=== PATIENT | female | born 1950 | race Caucasian/White ===

== ENCOUNTER 2020-07-16 10:19 | Inpatient (IN) ==
[2020-07-08 17:35] LABS: Basophils # (Auto) 0.06 K/mcL (0.00-0.20); Basophils % (Auto) 0.9 % (0.0-2.0); Eosinophils # (Auto) 0.12 K/mcL (0.00-0.70); Eosinophils % (Auto) 1.7 % (0.0-7.0); Hematocrit 39.5 % (36.0-48.0); Hemoglobin 12.6 g/dL (12.0-15.0); Lymphocytes # (Auto) 1.67 K/mcL (1.50-4.80); Lymphocytes % (Auto) 24.1 % (15.0-49.0); Mean Cell Volume 88.6 fL (80.0-100.0); Mean Corpuscular HGB Conc 31.9 g/dL (31.0-36.0); Mean Platelet Volume 11.5 fL (7.4-10.4); Monocytes # (Auto) 0.53 K/mcL (0.10-0.90); Monocytes % (Auto) 7.6 % (1.0-12.0); Neutrophils % (Auto) 65.7 % (38.0-78.0); Platelet Count 313 K/mcL (140-440); RBC 4.46 M/mcL (4.00-5.20); Red Cell Distribution Width 14.1 % (11.5-14.5); WBC 6.9 K/mcL (4.5-11.0)
[2020-07-08 17:38] LABS: Appearance,Urine CLEAR (Clear); Bacteria,Urine FEW /hpf (0); Bilirubin,Urine Negative (Negative); Color,Urine YELLOW; Culture Indicated,Urine Yes; Glucose,Urine (UA) Negative (Negative); Ketones,Urine Negative (Negative); Leukocyte Esterase,Urine Negative /ug (Negative); Mucus,Urine FEW /hpf; Nitrate,Urine POS (Negative); Protein,Urine Negative (Negative); Specific Gravity,Urine 1.019 (1.000-1.035); Urine Blood Negative (Negative); Urine RBC 2 /hpf (0-1); Urine Squamous Epithelial Cell 2 /hpf (0-4); Urine Transitional Epi Cells < 1 /hpf (0-2); Urine WBC 2 /hpf (0-4); Urobilinogen,Urine Negative
[2020-07-08 18:01] LABS: Estimated Average Glucose(eAG) 117 mg/dL; Hemoglobin A1C 5.7 % Hgb (4.0-6.0)
[2020-07-08 18:27] LABS: ALT/SGPT 16 U/L (<40); AST/SGOT 21 U/L (<32); Albumin 4.2 gm/dL (3.2-5.2); Albumin/Globulin Ratio 1.5 (1.0-2.3); Alkaline Phosphatase 98 U/L (39-117); Bilirubin,Total 0.4 mg/dL (0.1-1.0); Blood Urea Nitrogen 22 mg/dL (8-23); Calcium 9.9 mg/dL (8.6-10.4); Carbon Dioxide 30 mmol/L (22-30); Chloride 97 mmol/L (96-108); Globulin 2.8 gm/dL (2.2-3.7); Glomerular Filtration Rate 88; Glucose 115 mg/dL (70-105)
[~2020-07-16 10:19] MED LIST: CELECOXIB 200 MG CAPSULE PO SCH; IPRATROPIUM/ALBUTEROL 3 ML AMPUL.NEB NEB PRN; PREGABALIN 75 MG CAPSULE PO SCH; SCOPOLAMINE 1 PATCH PATCH TOPICAL PRN; ceFAZolin 2 GM in DEXTROSE 5% IN WATER 50 ML IV SCH; oxyCODONE 10 MG TAB.ER.12H PO SCH
[2020-07-16] MEDS ORDERED: KETAMINE 100 MG/ML ML ONE (11:45)
[2020-07-16] MEDS ORDERED: MIDAZOLAM 2 MG/2 ML VIAL ONE (11:45)
[2020-07-16] MEDS ORDERED: TRANEXAMIC ACID 1,000 MG/10 ML VIAL IV ONE (11:45)
[2020-07-16] MEDS ORDERED: ONDANSETRON 4 MG/2 ML VIAL ONE (11:45)
[2020-07-16] MEDS ORDERED: PROPOFOL 200 MG/20 ML VIAL IV ONE (11:45)
[2020-07-16] MEDS ORDERED: DEXAMETHASONE 10 MG/ML VIAL ONE (11:45)
[2020-07-16] MEDS ORDERED: GLYCOPYRROLATE 0.2 MG/ML VIAL IV ONE (11:45)
[2020-07-16] MEDS ORDERED: LIDOCAINE HCL/PF 100 MG/5 ML SYRINGE IV ONE (11:45)
[2020-07-16] MEDS ORDERED: fentaNYL 100 MCG/2 ML VIAL IV ONE (11:45)
[2020-07-16] MEDS ORDERED: PHENYLEPHRINE 10 MG/ML VIAL ONE (11:45)
[2020-07-16] MEDS ORDERED: ePHEDrine 50 MG/ML AMPUL IV ONE (11:45)
[2020-07-16 12:06] LABS: Appearance,Urine CLEAR (Clear); Bilirubin,Urine Negative (Negative); Color,Urine YELLOW; Culture Indicated,Urine No; Glucose,Urine (UA) Negative (Negative); Ketones,Urine Negative (Negative); Leukocyte Esterase,Urine Negative /ug (Negative); Nitrate,Urine Negative (Negative); Protein,Urine Negative (Negative); Specific Gravity,Urine 1.015 (1.000-1.035); Urine Blood Negative (Negative); Urobilinogen,Urine Negative
[2020-07-16] MEDS ORDERED: METHOCARBAMOL 1,000 MG/10 ML VIAL IV PRN (12:36)
[2020-07-16] MEDS ORDERED: ACETAMINOPHEN 1,000 MG/100 ML BAG IV ONE (12:36)
[2020-07-16] MEDS ORDERED: LACTATED RINGERS 250 ML IV PRN (12:36)
[2020-07-16] MEDS ORDERED: FLUMAZENIL 0.1 MG/ML ML IV PRN (12:36)
[2020-07-16] MEDS ORDERED: IPRATROPIUM/ALBUTEROL 3 ML AMPUL.NEB NEB PRN (12:36)
[2020-07-16] MEDS ORDERED: NALOXONE HCL 0.4 MG/ML VIAL IV PRN (12:36)
[2020-07-16] MEDS ORDERED: LACTATED RINGERS 1,000 ML IV SCH (12:45)
--- NOTE | 2020-07-16 14:05 | Brief Operative Note ---
Brief Operative Note Date of procedure: 07/16/20 Pre-op diagnosis: Left hip severe OA Post-op diagnosis: same Procedure: Left anterior total hip arthroplasty, (partial) cable fixation of intraoperative femur fracture Grafts/Implants: Yes (Depuy pinnacle 54 cup, neutral 32 liner, 3 cables) Anesthesia: spinal and GLMA Findings: large lateral femoral butterfly facture Complications: other (intra-operative femur fracture) Complications Description: post implantation xray showed a large proximal lat eral butterfly fragment fracture of the femoral shaft Surgeon: Ari Henriquez Tong Hooker: Shaun Silva Estimated blood loss (cc): 150 Specimens Removed/Pathology: none sent Condition: stable Disposition: PACU
[2020-07-16] MEDS ORDERED: TRANEXAMIC ACID 1,000 MG/10 ML VIAL IV SCH (14:07)
[2020-07-16] MEDS ORDERED: ONDANSETRON 4 MG/2 ML VIAL IV PRN (14:07)
[2020-07-16] MEDS: fentaNYL 100 MCG/2 ML VIAL IV PRN ×8 (14:25→15:30)
[2020-07-16] MEDS ORDERED: HYDROmorphone 0.5 MG/0.5 ML SYRINGE ONE (14:52)
[2020-07-16] MEDS ORDERED: MEPERIDINE 50 MG/ML INJECTION IV ONE (15:44)
[2020-07-16] MEDS ORDERED: MEPERIDINE 50 MG/ML INJECTION ONE ×2 (15:44→15:50)
[2020-07-16] MEDS: LACTATED RINGERS 1,000 ML IV SCH (15:50)
[2020-07-16] MEDS: HYDROmorphone 1 MG/ML SYRINGE IV PRN ×4 (16:23→21:03)
[2020-07-16] MEDS ORDERED: 0.9 % SODIUM CHLORIDE 500 ML IV ONE (18:24)
[2020-07-16 19:17] LABS: Hematocrit 33.8 % (36.0-48.0); Hemoglobin 10.9 g/dL (12.0-15.0)
[2020-07-16] MEDS: ceFAZolin 1 GM VIAL IV SCH (19:30)
[2020-07-16] MEDS: 0.9 % SODIUM CHLORIDE 10 ML SYRINGE IV SCH (21:07)
[2020-07-17] MEDS: HYDROmorphone 1 MG/ML SYRINGE IV PRN ×6 (00:04→12:37)
[2020-07-17] MEDS: LACTATED RINGERS 1,000 ML IV SCH ×3 (00:05→14:02)
[2020-07-17] MEDS: ceFAZolin 1 GM VIAL IV SCH ×3 (03:45→23:28)
[2020-07-17] MEDS: 0.9 % SODIUM CHLORIDE 10 ML SYRINGE IV SCH ×3 (06:07→23:28)
[2020-07-17] MEDS ORDERED: ceFAZolin 2 GM in DEXTROSE 5% IN WATER 50 ML IV SCH (07:30)
[2020-07-17] MEDS ORDERED: LIDOCAINE HCL/PF 100 MG/5 ML SYRINGE IV ONE (07:40)
[2020-07-17] MEDS ORDERED: MIDAZOLAM 5 MG/5 ML VIAL ONE (07:40)
[2020-07-17] MEDS ORDERED: SUCCINYLCHOLINE 20 MG/ML ML IV ONE (07:40)
[2020-07-17] MEDS ORDERED: ONDANSETRON 4 MG/2 ML VIAL ONE (07:40)
[2020-07-17] MEDS ORDERED: PROPOFOL 200 MG/20 ML VIAL IV ONE (07:40)
[2020-07-17] MEDS ORDERED: fentaNYL 100 MCG/2 ML VIAL IV ONE (07:40)
[2020-07-17] MEDS ORDERED: PHENYLEPHRINE 10 MG/ML VIAL ONE (07:40)
[2020-07-17] MEDS ORDERED: ePHEDrine 50 MG/ML AMPUL IV PRN (08:37)
[2020-07-17] MEDS ORDERED: ATROPINE SULFATE 0.4 MG/ML VIAL IV PRN (08:37)
[2020-07-17] MEDS ORDERED: IPRATROPIUM/ALBUTEROL 3 ML AMPUL.NEB NEB PRN (08:37)
[2020-07-17] MEDS ORDERED: FLUMAZENIL 0.1 MG/ML ML IV PRN (08:37)
[2020-07-17] MEDS ORDERED: METOPROLOL TARTRATE 5 MG/5 ML VIAL IV PRN (08:37)
[2020-07-17] MEDS ORDERED: HYDROmorphone 0.5 MG/0.5 ML SYRINGE IV PRN (08:37)
[2020-07-17] MEDS ORDERED: MEPERIDINE 25 MG/ML SYRINGE IV PRN (08:37)
[2020-07-17] MEDS ORDERED: METHOCARBAMOL 1,000 MG/10 ML VIAL IV PRN (08:37)
[2020-07-17] MEDS ORDERED: ONDANSETRON 4 MG/2 ML VIAL IV PRN ×2 (08:37→08:57)
[2020-07-17] MEDS ORDERED: NALOXONE HCL 0.4 MG/ML VIAL IV PRN (08:37)
[2020-07-17] MEDS ORDERED: diphenhydrAMINE 50 MG/ML VIAL IV PRN (08:37)
[2020-07-17] MEDS ORDERED: LACTATED RINGERS 1,000 ML IV SCH (08:45)
[2020-07-17] MEDS ORDERED: FLEETS ADULT ENEMA PR PRN (08:57)
[2020-07-17] MEDS ORDERED: TRANEXAMIC ACID 1,000 MG/10 ML VIAL IV SCH (08:57)
[2020-07-17] MEDS ORDERED: BISACODYL 10 MG SUPP.RECT PR PRN (08:57)
[2020-07-17] MEDS ORDERED: BENZOCAINE/MENTHOL 1 LOZENGE PO PRN (08:57)
[2020-07-17] MEDS ORDERED: MAGNESIUM HYDROXIDE 30 ML ORAL.SUSP PO PRN (08:57)
[2020-07-17] MEDS ORDERED: KETOROLAC 15 MG/ML VIAL IV PRN (08:57)
[2020-07-17] MEDS ORDERED: POLYETHYLENE GLYCOL 3350 17 GM PACKET PO PRN (08:57)
--- NOTE | 2020-07-17 08:57 | Brief Operative Note ---
Brief Operative Note Date of procedure: 07/17/20 Pre-op diagnosis: Incomplete total hip arthroplasty due to femoral shaft fract ure Post-op diagnosis: same Procedure: Revision hip arthroplasty with placement of long stem femoral stem and head ball Grafts/Implants: Yes (Depuy Corail revision 15 hi offset stem, +1 32 head ball) Anesthesia: GLMA Findings: good stem position well distal to fracture Complications: none Surgeon: Ari Henriquez Information Security Analyst: Shaun Silva Estimated blood loss (cc): 100 Specimens Removed/Pathology: none sent Condition: stable Disposition: PACU
--- NOTE | 2020-07-17 09:14 | Operative Note ---
DATE OF OPERATION: 07/16/2020 PREOPERATIVE DIAGNOSIS: Left hip severe osteoarthritis. POSTOPERATIVE DIAGNOSIS: Left hip severe osteoarthritis. PROCEDURE PERFORMED: Left anterior total hip arthroplasty, partial; aborted intraoperatively due to femoral shaft fracture. SURGEON: Ari Henriquez M.D. RIG BUILDER: Rafa Silva PA-C. The PA's assistance was required for the safe and efficient completion of the entire case. This provider's expertise and technical skill were required throughout the case. The PA assisted with preoperative coordination, intraoperative retraction, wound closure, dressing and splint application, as well as postoperative documentation and care coordination. ANESTHESIA: Spinal plus general. DRAINS: None. SPECIMEN: Femoral head which was discarded. ESTIMATED BLOOD LOSS: 250 mL. COMPLICATIONS: Intraoperative proximal femoral shaft fracture requiring cerclage wiring. INDICATIONS FOR SURGERY: This is a 69-year-old female who was having rapidly progressive left hip pain. Radiographs showed [id number] osteoarthritis. She did have a prior right total hip arthroplasty done by me, I believe, 8 years ago with good result. FINDINGS AT SURGERY: Severe arthritis. After placement of final implants, intraoperative fluoroscopy x-rays revealed a fracture of the femur proximally, that went well distal to the tip of the stem, which would require revision stem placement which was not available during surgery. We will have to bring her back to the OR once appropriate long stem implants can be brought down. PROCEDURE IN DETAIL: The patient had been seen preoperatively and informed consent had been obtained after discussion of risks and benefits of surgery. Risks including, but not limited to bleeding; infection; injury to nerves, blood vessels, other surrounding structures; anesthetic risks; incomplete or no resolution of symptoms; leg length discrepancy; dislocation; fracture; DVT and pulmonary embolus risks; and the possibility of needing further revision surgery. She understood and wished to proceed. Correct operative site was marked in preoperative holding, then patient was taken to the operating room after spinal anesthesia was given. LMA general was performed. She was carefully positioned on the fracture table. The left hip and groin were then carefully prepped and draped in normal sterile fashion. Timeout was performed, verifying patient name, operative site, and plan. Ioban was used to cover all skin surfaces and then fluoroscopy was brought in to take an x-ray, AP pelvis to verify neutral rotation. We then took an x-ray of the operative hip. We then used scalpel through skin and subcutaneous tissue and hemostasis obtained with Bovie cautery. Careful blunt dissection was taken down onto the tensor fascia. This was undermined circumferentially. IrriSept was irrigated and a ring retractor placed. A scalpel was then used to incise through the tensor fascia, and then carefully bluntly medially dissected to the muscle belly, and then blunt Cobra retractors were placed on the superior and inferior neck. Circumflex vessels were coagulated and cut and vastus fascia was split distally. Anterior capsulectomy was performed and the capsule was released out towards the greater and down towards the lesser trochanters. Corkscrew was placed in the femoral head and then osteotome was used under fluoroscopy to identify our neck cut. Oscillating tip saw was used to make our neck cut and the femoral head was removed. Acetabulum was exposed and the labrum was excised circumferentially, as well as soft tissue from the floor. IrriSept was irrigated and then we started reaming, initially directly medializing and increasing reamer size and angle until 53 got rim ream. We then opened a 54 three-hole [place] cup. The acetabulum was irrigated with IrriSept. After a minute we pulse lavaged with saline. The cup was then impacted. JointPoint was used to measure our position, indicating that we were in the safe range. We then placed a center hole cover. Osteotome was used to remove any overhanging osteophytes and then a neutral AltrX liner was carefully aligned and impacted. We then released traction. The leg was externally rotated. We released capsule around the medial neck and posteriorly and then the leg was extended and adducted. A Bovie was used to release capsule out towards the greater trochanter. Once adequate proximal exposure of the femur was performed, we then gained canal entry with a box osteotome and then awl was used to identify canal trajectory. A rongeur and rasp were used to lateralize, then began sequentially broaching with the Tri-Lock broaches. Her opposite side was a size 7. We found that this was not seating at our neck cut level, so we went up to a size 9. This still did not seem like it was seating at our neck cut level, but I went ahead and trialed the 9 high offset stem with a +1, 32 head ball. Hip was reduced. We checked fluoro image. This appeared to be filling the canal. Our leg length and offset appeared similar to the opposite side, so I went ahead and redislocated and exposed the proximal femur. I removed the head ball trial with the broach. I wanted to see if the stem trial would stop at our neck cut, and it seemed to seat easy below the neck cut, so I carefully went up to a size 10. After each broach I kept checking the bone proximally circumferentially to see if any cracks were visible, and there were none visible and it appeared stable. Finally, we took a size 11 stem to seem to get hang up at our neck cut level, so I went ahead and opened an 11 Tri-Lock stem. This was impacted and it seated just above our neck cut where the broach did. I then opened a +1 head ball. The stem was carefully cleaned and dried and the head ball was impacted. We then reduced the hip. Fluoroscopy was brought in to check final x-rays, and at this point we visualized that there was a fairly large butterfly fragment fracture of the proximal shaft of the femur, starting just around the tip of the stem and extending distally. At this point, we had to re-dislocate the hip and re-expose the proximal femur. A drift punch was used to remove the head ball and then we threaded a handle into the stem and then backslapped this out. The leg was then brought up. I initially went with a cerclage cable just below the lesser trochanter. However, this was only going to hold the very proximal-most portion of the fracture fragment, so I ended up having to extend the incision distally, turning it into a lateral incision. I used Bovie cautery for hemostasis and dissected down onto the IT band. This was split. I then made a second window through the vastus lateralis, and this was directly then overlying the butterfly fragment laterally. I then used the cable passer around the fragment, passing a Synthes cable. I then tensioned this and it reduced the fragment anatomically. This was tensioned to 150 foot-pounds. I then crimped and cut the cable. I repeated this with a second cable between this one and our proximal one. I tensioned this and cut and then went back to our proximal cable, tensioned and cut. This gave us three cables around the fragment. After discussion with the reps, we did not have any cementless stems that were long enough to get distal to the fracture fragment, and so I did not feel that cementing a stem with the fracture fragment was the best option, and the nearest long stem cementless option was hours away in [place]. At this point I made the decision to go ahead and abort the procedure and would need to return later to place a long stem. We went ahead and irrigated copiously with IrriSept. After a minute we irrigated with saline. I then used a Stratafix suture to close the IT band. We irrigated more IrriSept, after a minute more saline, and then 2-0 Monocryl for subcutaneous and then [place] Zip closure for skin. A sterile dressing was applied. The patient was then awakened, extubated, and transferred to recovery in stable condition for anticipated return to the OR as soon as possible once long cementless revision stems were available. BJB:madi Job ID: [id number] Doc ID: [id number] Ari Henriquez MD
--- NOTE | 2020-07-17 09:22 | XRay Report ---
CLINICAL INFORMATION: left anterior total hip arthroplasty COMPARISON: None. FINDINGS: Digital images are submitted from the OR. Initial image shows moderate degenerative change in the left hip. Final image shows total hip prostheses anatomic position. Cerclage wires are placed in the proximal femur ostensibly transfixing an oblique fracture which is poorly visualized IMPRESSION: ORIF left total hip prostheses in anatomic alignment. Interpreted and Authenticated by: López Griggs 07/17/20
[2020-07-17] MEDS: fentaNYL 100 MCG/2 ML VIAL IV PRN ×4 (09:27→09:41)
--- NOTE | 2020-07-17 09:32 | XRay Report ---
CLINICAL INFORMATION: left total hip revision COMPARISON: None. FINDINGS: Digital images are submitted from the OR. Initial image shows the recently placed prostheses anatomically aligned. Final images show revised prostheses in anatomic position.Cerclage wires are placed in the proximal femur ostensibly transfixing an oblique fracture which is poorly visualized IMPRESSION: ORIF left total hip revision in anatomic alignment. Interpreted and Authenticated by: López Griggs 07/17/20
[2020-07-17] MEDS: 0.9 % SODIUM CHLORIDE 1,000 ML IV SCH ×3 (10:15→20:16)
--- NOTE | 2020-07-17 10:31 | XRay Report ---
CLINICAL INFORMATION: Post-Op Total Hip COMPARISON: None. FINDINGS: Left total hip revision is anatomically aligned. Cerclage wires support the proximal femoral diaphysis with probable small oblique fracture through the lateral cortex of the proximal femoral diaphysis. Soft tissue swelling appreciated. Older right hip prostheses remains anatomically aligned without loosening or infection. IMPRESSION: Left total hip revision anatomically aligned. Interpreted and Authenticated by: López Griggs 07/17/20
[2020-07-17] MEDS: DOCUSATE SODIUM 100 MG CAPSULE PO SCH ×2 (10:39→20:35)
[2020-07-17] MEDS: oxyCODONE/APAP 5/325MG TABLET PO PRN ×4 (11:51→23:57)
--- NOTE | 2020-07-17 17:10 | Operative Note ---
DATE OF OPERATION: 07/17/2020 PREOPERATIVE DIAGNOSIS: Incomplete total hip arthroplasty due to intraoperative femoral shaft fracture requiring long revision stem that was not available at the initial procedure. POSTOPERATIVE DIAGNOSIS: Incomplete total hip arthroplasty due to intraoperative femoral shaft fracture requiring long revision stem that was not available at the initial procedure. PROCEDURE PERFORMED: Completion of the left total hip arthroplasty with placement of a Corail revision stem size 15 high offset with a +1, 32 mm delta ceramic head ball. SURGEON: Ari Henriquez M.D. MUSICAL PERFORMER: Rafa Silva PA-C. The PA's assistance was required for the safe and efficient completion of the entire case. This provider's expertise and technical skill were required throughout the case. The PA assisted with preoperative coordination, intraoperative retraction, wound closure, dressing and splint application, as well as postoperative documentation and care coordination. ANESTHESIA: General. DRAINS: None. SPECIMENS: None. COMPLICATIONS: None. ESTIMATED BLOOD LOSS: 100 mL. POSTOPERATIVE CONDITION: Stable. INDICATIONS FOR SURGERY: This is a 69-year-old female who yesterday underwent a planned total hip arthroplasty. After final implantation of the implants was done, there was found to be a femoral shaft fracture near the tip of the stem. At that point, we removed the stem and cabled the fracture. However, we did not have a revision stem long enough to get distal to the fracture available to us at the time, and so the patient was closed and we proceeded to obtain a long revision stem. FINDINGS AT SURGERY: Near anatomically-reduced fracture with good placement of the stem revealing satisfactory fixation distal to the fracture of 2 bone diameter width's as well as satisfactory component position. PROCEDURE IN DETAIL: The patient had been seen preoperatively and informed consent was obtained after discussion of risks and benefits of surgery. Risks include, but not limited to, bleeding; infection; injury to nerves, blood vessels, other surrounding structures; anesthetic risks; and the possibility of needing further surgery. She understood and wished to proceed. Correct operative site was marked, and then patient was taken to the operating room. General anesthesia was induced. She was then carefully transferred to the fracture table and then legs were placed in leg holders. Pressure points were carefully padded. Her prior dressing was removed and then the left hip was carefully prepped and draped in normal sterile fashion. Ioban was used to cover all skin surfaces. Her previous incision was opened with a scalpel, cutting the subcutaneous sutures which were removed. I then evacuated out some hematoma. We irrigated with IrriSept and placed a ring retractor. I then cut and started removing the Stratafix suture closing the fascia. We opened our prior fascial incision about two-thirds of the length from what was opened yesterday. We then had direct access down to the proximal femur without traction on the leg. We did go ahead and check an AP pelvis to identify neutral rotation. I then externally rotated and extended and adducted the leg to expose the proximal femur. Coagulated hematoma was aspirated out of the femoral canal and then we irrigated with IrriSept. I then started broaching up with the Corail. I used the Corail revision broaches and broached up to a size 15 before it seated in our neck cut. I then removed the broach and used a flexible reamer to ream distally and marking the length needed, reamed with an 11, 12, and 13 mm flexible reamer. We then trialed the long stem Corail trial and it seated. Although it was reasonably snug to get down there, we did not feel based off of this, as well as the flexible reamer getting quite substantial chatter that it was safe to go up any further size. At this point, I did place a +5 head ball trial. We did reduce the hip. That did reduce with some increased tension. Fluoro images were taken. It did appear that we were lengthening the leg, so I went ahead and redislocated. We opened a 15 high offset Corail long femoral stem. The trial was removed. I irrigated the canal with IrriSept again, after waiting a minute pulse lavaged with saline. The stem was then impacted and did fully seat down onto the neck. Based off of knowing we were long with the +5, I went ahead and opened a +1, 32 mm delta ceramic head ball. The stem was carefully cleaned and dried and then the head ball was impacted. The hip was reduced. This did not really feel like it had over-tensioning to it. Final fluoro images were taken and saved. JointPoint, according to the new calculations, said we had lengthened her leg by 7 mm. I went ahead and took pictures distally as well, verifying that we were about two bone diameters with the stem tip distal to the distal extent of the fracture. Those images were saved. We then irrigated the joint with IrriSept, after a minute pulse lavaged with saline. I then used a Stratafix suture to close the tensor fascia. We then did another irrigation of IrriSept, after a minute more pulse lavage, and then subcutaneous fat was closed with a running Stratafix and then 2-0 Monocryl for subcutaneous. [place] Zip closure was used for skin closure. Sterile dressing was applied. The patient was awakened, extubated, and transferred to recovery in stable condition. BJB:madi Job ID: [id number] Doc ID: [id number] Ari Henriquez MD [facility]US[facility]
[2020-07-17] MEDS: ASPIRIN 81 MG TAB.CHEW PO SCH (20:35)
[2020-07-17] MEDS ORDERED: SENNOSIDES 1 TABLET PO SCH (21:00)
[2020-07-18] MEDS: oxyCODONE/APAP 5/325MG TABLET PO PRN ×3 (04:49→10:51)
[2020-07-18] MEDS: 0.9 % SODIUM CHLORIDE 1,000 ML IV SCH (06:26)
[2020-07-18] MEDS: 0.9 % SODIUM CHLORIDE 10 ML SYRINGE IV SCH (06:30)
[2020-07-18 06:44] LABS: Hemoglobin 7.9 g/dL (12.0-15.0)
[2020-07-18] MEDS ORDERED: LEVOTHYROXINE 50 MCG TABLET PO SCH (07:30)
[2020-07-18] MEDS: ASPIRIN 81 MG TAB.CHEW PO SCH (08:45)
[2020-07-18] MEDS: DOCUSATE SODIUM 100 MG CAPSULE PO SCH (08:45)
[2020-07-18] MEDS ORDERED: HYDROCHLOROTHIAZIDE 25 MG TABLET PO SCH (09:00)
[2020-07-18] MEDS ORDERED: VITAMIN E (DL,TOCOPHERYL ACET) 400 UNIT CAPSULE PO SCH (09:00)
[2020-07-18] MEDS ORDERED: VIT A,C & E/LUTEIN/MINERALS TABLET PO SCH (09:00)
[2020-07-18] MEDS ORDERED: CALCIUM W/VIT D3 500 MG TABLET PO SCH (09:00)
[2020-07-18] MEDS ORDERED: LISINOPRIL 10 MG TABLET PO SCH (09:00)
[2020-07-18] MEDS ORDERED: MULTIVIT,THER IRON,CA,FA & MIN 1 TABLET PO SCH (09:00)
[2020-07-18] MEDS ORDERED: ESTRADIOL 1 MG TABLET PO SCH (09:00)
--- NOTE | 2020-07-18 09:55 | Discharge Summary ---
Discharge Provider Provider Patient information: Note initiated : 07/18/20 at 9:50 am Service Date, if different from initiated Date: [] Patient: Sharri Sorto 69 y/o F admitted on 07/16/20 for Left Total Hip Arthroplasty Anterior. Chief Complaint: [Left hip pain] Date of admission: 07/16/20 14:07 Discharge date: 07/18/20 Primary care physician: Toño Chin PA-C COURSE Hospital Course Hospital course: Patient admitted for total hip arthroplasty. Intraoperatively a femoral shaft fracture was discovered, long revision stems were not available so she was closed and admitted to the floor. We returned to the OR the following day for completion of the procedure and placement of a long revision femoral stem. Discharge diagnosis: s/p Left total hip arthroplasty and femoral shaft fracture Reason for admission: Left hip osteoarthritis Complications: Intraoperative left femur fracutre Time Spent with Patient Time attestation: Total time spent providing and/or coordinating discharge services: Physical Examination Exam Clean and dry: Yes Weight bearing status: partial Discharge Instructions - SUSAN Patient Instructions Total Hip Protocol: Follow activity instructions as provided by Physical Therapy. 50 % PWB LLE Discharge Plan Patient/Caregiver Discharge Instructions Activity: ambulate only with your walker and as per physical therapy Diet: Regular Diet Prescriptions: New aspirin 81 mg Tablet,Delayed Release (Dr/Ec) 81 mg PO BID 30 Days Qty: 60 RF: 0 oxycodone-acetaminophen 5-325 mg Tablet 1 - 2 tab PO Q4H PRN (Reason: Pain) Qty: 60 RF: 0 methocarbamol [Robaxin-750] 750 mg tablet 750 mg PO QID PRN (Reason: spasms) Qty: 60 RF: 0 No Action multivitamin tablet 1 tab PO .COMPLEX RF: 0 estradiol 0.5 mg tablet 0.25 mg PO MOTH@0900 RF: 0 hydrochlorothiazide 25 mg tablet 25 mg PO QDAY Qty: 30 RF: 11 levothyroxine 50 mcg tablet 50 mcg PO QDAY Qty: 30 RF: 11 lisinopril 10 mg tablet 10 mg PO QDAY Qty: 30 RF: 11 vitamin E 400 unit Capsule 800 unit PO QDAY RF: 0 Vision Formula (with lutein) 1,000 unit-200 mg-60 unit-2 mg Tablet 1 tab PO QDAY RF: 0 Calcium 600 + D(3) 600 mg calcium- 200 unit Capsule 2 cap PO DAILY RF: 0 ferrous sulfate 325 mg (65 mg iron) Tablet 325 mg PO BID RF: 0 aspirin 81 mg tablet,chewable 81 mg PO DAILY RF: 0 Other Ambulatory Orders: Physical Therapy DC - SUSAN (Routine) Location: None Selected Ordered By: Ari Henriquez Toilet Riser Discharge Order (ONCE) Location: None Selected Ordered By: Ari Henriquez Walker (ONCE) Location: None Selected Ordered By: Ari Henriquez Follow Up Plan Follow up with: Ari Henriquez MD [Physician] - Patient Disposition: Home, Self-Care Discharge Orders: Discharge Order (Routine); Ordered 07/18/20 Ordered By: Ari Henriquez Pending Pending Pending: Resuscitation Status Full Code Diet Regular Diet Start WedJul 17 858 Aspirin (Aspirin) 81 mg PO BID [facility] Last Admin: 07/18/20 08:45 Dose: 81 mg Documented by: Admin: 07/17/20 20:35 Dose: 81 mg Documented by: NAOMI Calcium/Vitamin D (Calcium W/Vit D3) 1,000 mg PO DAILY [facility] Last Admin: 07/18/20 08:45 Dose: 1,000 mg Documented by: Peri Docusate Sodium (Colace) 100 mg PO BID [facility] Last Admin: 07/18/20 08:45 Dose: 100 mg Documented by: Admin: 07/17/20 20:35 Dose: 100 mg Documented by: Admin: 07/17/20 10:39 Dose: Not Given Documented by: JARED Estradiol (Estrace) 0.25 mg PO MOTH@0900 [facility] Last Admin: 07/18/20 08:44 Dose: 0.25 mg Documented by: Peri Hydrochlorothiazide (Oretic) 25 mg PO QDAY [facility] Last Admin: 07/18/20 08:48 Dose: Not Given Documented by: Peri Hydromorphone HCl (Dilaudid) 0.5 - 2 mg IV Q2HP PRN; Protocol PRN Reason: Per Pain Protocol Last Admin: 07/17/20 12:37 Dose: 1 mg Documented by: Admin: 07/17/20 10:31 Dose: 1 mg Documented by: Admin: 07/17/20 06:07 Dose: 1 mg Documented by: Admin: 07/17/20 04:11 Dose: 1 mg Documented by: Admin: 07/17/20 02:11 Dose: 1 mg Documented by: Admin: 07/17/20 00:04 Dose: 1 mg Documented by: Admin: 07/16/20 21:03 Dose: 1 mg Documented by: Admin: 07/16/20 19:02 Dose: 1 mg Documented by: Admin: 07/16/20 17:21 Dose: 0.5 mg Documented by: Admin: 07/16/20 16:23 Dose: 0.5 mg Documented by: JORGE Sodium Chloride (Sodium Chloride 0.9%) 1,000 mls @ 100 mls/hr IV .Q10H [facility] Last Admin: 07/18/20 06:26 Dose: Not Given Documented by: Infusion: 07/18/20 06:00 Dose: 0 mls/hr Documented by: Admin: 07/17/20 20:16 Dose: 100 mls/hr Documented by: Infusion: 07/17/20 20:16 Dose: 100 mls/hr Documented by: Admin: 07/17/20 10:32 Dose: 100 mls/hr Documented by: Admin: 07/17/20 10:15 Dose: Not Given Documented by: JARED Iron Carb/Multivit/Cobalt/Folic Acid (Multivitamin W/Minerals) 1 tab PO DAILY [facility] Last Admin: 07/18/20 08:45 Dose: 1 tab Documented by: Peri Levothyroxine Sodium (Synthroid) 50 mcg PO ACB [facility] Last Admin: 07/18/20 07:22 Dose: 50 mcg Documented by: JARED Lisinopril (Zestril) 10 mg PO QDAY [facility] Last Admin: 07/18/20 08:48 Dose: Not Given Documented by: Peri Multivitamins/Minerals (Ocuvite) 1 tab PO DAILY [facility] Last Admin: 07/18/20 08:44 Dose: 1 tab Documented by: JARED Oxycodone/Acetaminophen (Percocet 5-325 Mg) 1 - 2 tab PO Q4HP PRN; Protocol PRN Reason: Per Pain Protocol Last Admin: 07/18/20 08:12 Dose: 1 tab Documented by: Admin: 07/18/20 04:49 Dose: 2 tab Documented by: Admin: 07/17/20 23:57 Dose: 2 tab Documented by: Admin: 07/17/20 20:15 Dose: 2 tab Documented by: Admin: 07/17/20 16:14 Dose: 2 tab Documented by: Admin: 07/17/20 11:51 Dose: 2 tab Documented by: JARED Senna (Senokot) 2 tab PO HS [facility] Last Admin: 07/17/20 20:35 Dose: 2 tab Documented by: NAOMI Sodium Chloride (Saline Flush) 10 ml IV Q8 [facility] Last Admin: 07/18/20 06:30 Dose: 10 ml Documented by: Admin: 07/17/20 23:28 Dose: Not Given Documented by: Admin: 07/17/20 14:01 Dose: Not Given Documented by: JARED Vitamin E (Vitamin E) 800 unit PO DAILY [facility] Last Admin: 07/18/20 08:44 Dose: 800 unit Documented by: JARED Shift Summary 07/18/20 03:29 Shift Summary by Tracey Martinez Pt had much better pain control tonight after hip replacement/repair yesterday. Slept most of the night. PO meds controlling pain. Shifting self in bed. [place] draining large amounts clear urine. Has not been out of bed tonight. Pt is 50% wt bearing on left leg, and PT needs to help her w/ambulation. Plan is for her to d/c home w/, hopefully today. Initialized on 07/18/20 03:29 - END OF NOTE
== END 2020-07-18 11:11 | disposition home or self-care (01) ==
LOC: SUR 10:19 → MEDSUR 10:20
PROVIDERS: ADMIT Orthopaedic Surgery; ATTEND Orthopaedic Surgery